=== PATIENT | female | born 1945 | race Caucasian/White ===

== ENCOUNTER → 2016-04-26 | Outpatient (CLI) | payer BC ==
[~2016-04-26] MED LIST: ASPIRIN 81M81 MG/TA2 PO; COMBIRESP IH; EPA FISH OIL1000 MG PO; LEVAQUIN 750MG750 M1 PO; PRINZIDE 12.5 M1 TAB PO; PROAIR HFA0.09 MG/AC IH; PROTONIX 40MG T40 MG PO; RT SPIRIVA18 MCG IH; THEO-24 30300 MG/CAP PO; ZESTRIL 5MG5 MG PO
== END ==
LOC: MC.RAD 07:40
DX: Z12.31 Encounter for screening mammogram for malignant neoplasm of breast (principal); D24.2 Benign neoplasm of left breast; D24.1 Benign neoplasm of right breast

== ENCOUNTER → 2016-09-26 | Outpatient (CLI) | payer BC | LOC: COL.VAS 08:38 | DX: I77.810 Thoracic aortic ectasia (principal); I51.7 Cardiomegaly; I36.1 Nonrheumatic tricuspid (valve) insufficiency; I10 Essential (primary) hypertension; R60.9 Edema, unspecified ==

== ENCOUNTER 2017-11-26 19:31 | Emergency (ER) | payer BC ==
[~2017-11-26] VITALS: Ht 162.6 cm; Wt 97.7 kg
[2017-11-26 19:38] VITALS: TEMP 98.6
[2017-11-26 20:36] LABS: BASO # 0.1 (0.0-0.2); BASO % 0.7 % (0.0-2.0); EOS # 0.2 (0.0-0.7); EOS % 1.9 % (0-4.0); GRAN % 74.4 % (42.2-75.2); HEMATOCRIT 41.8 % (37.0-47.0); HEMOGLOBIN 12.8 g/dl (12.5-16.0); LYMPH # 1.5 (1.2-3.4); MEAN CELL VOLUME 88 fl (80.0-100.0); MEAN CORPUSCULAR HEMOGLOBIN 27 pg (27.0-31.0); MEAN CORPUSCULAR HGB CONC 31 g/dl (33.0-37.0); MEAN PLATELET VOLUME 10.2 fl (7.4-10.4); MONO # 0.6 (0.1-0.6); MONO % 6.5 % (1.7-9.3); PLATELET COUNT 297 K/mm3 (130-400); RED BLOOD COUNT 4.77 M/mm3 (4.10-5.30); REDCELL DISTRIBUTION WIDTH-CV 15.5 % (11.5-14.5)
[2017-11-26] MEDS ORDERED: LIDODERM 5% PATC1 EA TP (21:47)
[2017-11-26] MEDS ORDERED: TYLENOL W/COD1 UDTAB PO (21:47)
[2017-11-26 21:54] VITALS: BP 149/76; PULSE 79
[2017-11-27 00:05] LABS: PROTHROMBIN TIME 11.5 SECONDS (9.7-12.8)
[2017-11-27 00:14] LABS: ALBUMIN 4.3 gm/dL (3.5-5.0); BILIRUBIN,TOTAL 0.4 mg/dL (0.0-1.0); CALCIUM 9.3 mg/dL (8.4-10.2); CREATININE, serum 0.77 mg/dL (0.52-1.25); POTASSIUM 4.3 mmol/L (3.4-5.0)
== END 2017-11-26 21:54 | disposition home or self-care (01) ==
LOC: COL.ER 19:31
PROVIDERS: Emergency Medicine
DX: S20.211A Contusion of right front wall of thorax, initial encounter (principal); I10 Essential (primary) hypertension; K21.9 Gastro-esophageal reflux disease without esophagitis; J44.9 Chronic obstructive pulmonary disease, unspecified; F17.210 Nicotine dependence, cigarettes, uncomplicated; Z79.82 Long term (current) use of aspirin; W18.39XA Other fall on same level, initial encounter; Y92.410 Unspecified street and highway as the place of occurrence of the external cause

== ENCOUNTER → 2018-05-02 | Outpatient (CLI) | payer BC ==
[~2018-05-02] MED LIST changes: +LIDODERM 5% PATC1 EA TP; +TYLENOL W/COD1 UDTAB PO
== END ==
LOC: MC.RAD 13:40
DX: Z12.31 Encounter for screening mammogram for malignant neoplasm of breast (principal)

== ENCOUNTER → 2019-02-26 | Outpatient (CLI) | payer BC | LOC: COL.RAD 15:24 | DX: R13.13 Dysphagia, pharyngeal phase (principal) ==

== ENCOUNTER → 2020-03-23 | Outpatient (CLI) | payer BC ==
[~2020-03-23] MED LIST changes: +ANORO IH; +CEFTIN500 MG PO; +DOXYCYCLINE 10100 MG PO; +NORCO 325 MG-51 TAB PO; +PREDNISONE20 MG PO; +PRINZIDE 12.5 M1 TA1 PO; +SPIRIVA RE2.5 MCG/Ac IH; +ZESTORETIC 12.51 TA1 PO
== END | disposition still patient (30) ==
LOC: MC.RAD 08:00
DX: Z12.31 Encounter for screening mammogram for malignant neoplasm of breast (principal)

== ENCOUNTER 2020-09-16 07:08 | Day surgery (SDC) | payer BC ==
[~2020-09-16] VITALS: Ht 165.1 cm; Wt 96.0 kg
[~2020-09-16 07:08] MED LIST changes: -ANORO IH; -CEFTIN500 MG PO; -DOXYCYCLINE 10100 MG PO; -NORCO 325 MG-51 TAB PO; -PREDNISONE20 MG PO; -PRINZIDE 12.5 M1 TA1 PO; -SPIRIVA RE2.5 MCG/Ac IH; -ZESTORETIC 12.51 TA1 PO
[2020-09-16 07:53] VITALS: BP 104/57; PULSE 95; TEMP 97.8
[2020-09-16] MEDS ORDERED: PRINZIDE 12.5 M1 TA1 PO (08:03)
[2020-09-16] MEDS ORDERED: ANORO IH (08:03)
[2020-09-16] MEDS ORDERED: PROAIR HFA0.09 MG/AC IH (08:04)
[2020-09-16 11:07] VITALS: BP 102/61; PULSE 62
--- NOTE | 2020-09-16 11:07 | NUR ---
Patient returns to room 6 per cart after having Bronchoscopy. Awake and alert. Denies difficulty swallowing or breathing. On oxygen at 3L per nasal cannula. Spouse in room. Temp 98.5. Siderails up x2 and call light in reach.
[2020-09-16 11:22] VITALS: BP 93/61; PULSE 65
--- NOTE | 2020-09-16 11:22 | NUR ---
Dr. Mejias here and talks with patient and spouse. All questions answered. Sats maintained greater than 93% on 3L.
[2020-09-16 11:37] VITALS: BP 104/75; PULSE 70
--- NOTE | 2020-09-16 11:37 | NUR ---
Tolerates water. No coughing. Talking with spouse.
[2020-09-16 11:52] VITALS: BP 101/76; PULSE 64
--- NOTE | 2020-09-16 11:52 | NUR ---
Patient has been resting and no coughing noted. IV discontinued and site is free of redness. Assisted up to the bathroom and is able to void and returns to room.
--- NOTE | 2020-09-16 12:00 | NUR ---
Dismissal instructions given and voices understanding of these. Provided office number for questions and concerns.
--- NOTE | 2020-09-16 12:06 | NUR ---
Patient dismissed to home driven by spouse and taken to the front door per wheelchair and assisted into vehicle with instructions in hand. Patient was using portable oxygen at 3L per nasal cannula.
== END 2020-09-16 12:06 | disposition home or self-care (01) ==
LOC: SDCO 07:08
DX: R91.8 Other nonspecific abnormal finding of lung field (principal); R04.2 Hemoptysis; R09.02 Hypoxemia; J44.9 Chronic obstructive pulmonary disease, unspecified; E07.9 Disorder of thyroid, unspecified; J98.11 Atelectasis; K21.9 Gastro-esophageal reflux disease without esophagitis; M81.0 Age-related osteoporosis without current pathological fracture; M19.90 Unspecified osteoarthritis, unspecified site; I10 Essential (primary) hypertension; Z85.21 Personal history of malignant neoplasm of larynx; Z87.891 Personal history of nicotine dependence; Z20.822 Contact with and (suspected) exposure to COVID-19; Z79.890 Hormone replacement therapy; Z79.899 Other long term (current) drug therapy; Z83.3 Family history of diabetes mellitus; Z80.9 Family history of malignant neoplasm, unspecified
CPT/HCPCS: J2704; J7120

== ENCOUNTER 2020-11-04 08:18 | Emergency (ER) | payer BC ==
[~2020-11-04] VITALS: Ht 162.6 cm; Wt 97.3 kg
[~2020-11-04 08:18] MED LIST changes: +ANORO IH; +PRINZIDE 12.5 M1 TA1 PO
[2020-11-04 08:26] VITALS: TEMP 99
[2020-11-04 08:46] LABS: BASO # 0.1 (0.0-0.2); BASO % 0.8 % (0.0-2.0); EOS # 0.2 (0.0-0.7); EOS % 2.7 % (0-4.0); GRAN # 4.3 (1.4-6.5); GRAN % 66.9 % (42.2-75.2); HEMOGLOBIN 12.8 g/dl (12.5-16.0); LYMPH # 1.4 (1.2-3.4); LYMPH % 21.4 % (20.0-51.0); MEAN CELL VOLUME 88 fl (80.0-100.0); MEAN CORPUSCULAR HEMOGLOBIN 28 pg (27.0-31.0); MEAN CORPUSCULAR HGB CONC 32 g/dl (33.0-37.0); MEAN PLATELET VOLUME 9.5 fl (7.4-10.4); MONO # 0.5 (0.1-0.6); MONO % 7.6 % (1.7-9.3); PLATELET COUNT 286 K/mm3 (130-400); RED BLOOD COUNT 4.56 M/mm3 (4.10-5.30); REDCELL DISTRIBUTION WIDTH-CV 14.6 % (11.5-14.5)
[2020-11-04 08:54] LABS: ALBUMIN 3.1 gm/dL (3.4-4.8); BILIRUBIN,TOTAL 0.5 mg/dL (0.2-1.2); CREATININE, serum 0.77 mg/dL (0.57-1.11); POTASSIUM 4.4 mmol/L (3.5-4.5); TOTAL PROTEIN 7.2 gm/dL (6.2-8.1)
[2020-11-04 08:58] LABS: ARTERIAL BLD GAS TCO2 CT 32.3; ARTERIAL BLOOD GAS BASE EXCESS 6.3 (-2-2); ARTERIAL BLOOD GAS HCO3 30.9 meq/L (22-26); ARTERIAL BLOOD GAS PCO2 44.2 mmHg (35-45); ARTERIAL BLOOD GAS PO2 78.4 mmHg (80-100); ARTERIAL BLOOD GAS pH 7.46 (7.35-7.45)
[2020-11-04 09:00] LABS: TROPONIN-I 0.014 ng/mL (0.00-0.033)
[2020-11-04] MEDS ORDERED: PREDNISONE20 MG PO (09:52)
[2020-11-04] MEDS ORDERED: DOXYCYCLINE 10100 MG PO (09:52)
[2020-11-04] MEDS ORDERED: CEFTIN500 MG PO (09:52)
[2020-11-04 10:17] VITALS: BP 147/84; PULSE 86
== END 2020-11-04 10:17 | disposition home or self-care (01) ==
LOC: COL.ER 08:18
PROVIDERS: Emergency Medicine
DX: R91.8 Other nonspecific abnormal finding of lung field (principal); I10 Essential (primary) hypertension; J44.9 Chronic obstructive pulmonary disease, unspecified; Z20.822 Contact with and (suspected) exposure to COVID-19; Z87.891 Personal history of nicotine dependence; Z79.899 Other long term (current) drug therapy
CPT/HCPCS: J7030; Q9967

== ENCOUNTER 2020-11-21 10:09 | Day surgery (SDC) | payer BC ==
[~2020-11-21] VITALS: Ht 162.6 cm; Wt 92.7 kg
[~2020-11-21 10:09] MED LIST changes: +CEFTIN500 MG PO; +DOXYCYCLINE 10100 MG PO; +PREDNISONE20 MG PO
[2020-11-21] MEDS ORDERED: ZESTORETIC 12.51 TA1 PO (10:29)
[2020-11-21] MEDS ORDERED: SPIRIVA RE2.5 MCG/Ac IH (10:30)
[2020-11-21 10:51] VITALS: BP 122/86; PULSE 95; TEMP 97.8
[2020-11-21 13:05] VITALS: BP 129/78; PULSE 73; TEMP 97.4
[2020-11-21] MEDS ORDERED: NORCO 325 MG-51 TAB PO (13:09)
[2020-11-21 13:20] VITALS: BP 168/85; PULSE 77
[2020-11-21 13:35] VITALS: BP 130/77; PULSE 85
--- NOTE | 2020-11-21 13:47 | NUR ---
1305: Patient arrived back from OR, Doing well, alert and awake, reports doing well no complaint of pain or nausea. 1320: Patient requesting pepsi and jello, tolerated both well, no complaint of pain or nausea. 1330: Went through discharge instruction with patient and daughter and gave implanted device instructions to patient and made copy per daughter request. Patient went to restroom and got dressed. 1335: Vital signs stable no complaint of pain or nausea. 1340: Escorted patient to patient entrance via wheelchair. Left patient in the care of her daughter, Pamela.
== END 2020-11-21 13:45 | disposition home or self-care (01) ==
LOC: SDCO 10:09
DX: C34.02 Malignant neoplasm of left main bronchus (principal); I10 Essential (primary) hypertension; J44.9 Chronic obstructive pulmonary disease, unspecified; Z85.21 Personal history of malignant neoplasm of larynx; F17.210 Nicotine dependence, cigarettes, uncomplicated; E66.9 Obesity, unspecified; Z68.36 Body mass index [BMI] 36.0-36.9, adult; Z20.822 Contact with and (suspected) exposure to COVID-19; Z79.899 Other long term (current) drug therapy; Z92.3 Personal history of irradiation; Z99.81 Dependence on supplemental oxygen
CPT/HCPCS: C1788; J0690; J1644; J2405; J2704; J3010; J7120

== ENCOUNTER → 2021-04-21 | Outpatient (CLI) | payer BC ==
[~2021-04-21] MED LIST changes: +NORCO 325 MG-51 TAB PO; +SPIRIVA RE2.5 MCG/Ac IH; +ZESTORETIC 12.51 TA1 PO
== END ==
LOC: MC.RAD 06:59
DX: Z12.31 Encounter for screening mammogram for malignant neoplasm of breast (principal)

== ENCOUNTER → 2022-03-13 | Outpatient (CLI) | payer BC ==
[~2022-03-13] MED LIST changes: +AMOXICILLIN 8751 TAB PO; +ELIQUIS 5MG PO; +MIRTAZAPINE7.5 MG PO; +PREDNISONE50 MG PO; +SYNTHROID0.05 MG/TA PO; +TESSALON PERLE200 MG PO; +TRELEGY ELLIPT1 EACH IH
== END ==
LOC: COL.RAD 10:01
DX: C34.02 Malignant neoplasm of left main bronchus (principal); J90 Pleural effusion, not elsewhere classified; E27.8 Other specified disorders of adrenal gland
CPT/HCPCS: Q9967

== ENCOUNTER 2023-01-08 06:24 | Day surgery (SDC) | payer BC ==
[2023-01-08] VITALS (10 sets, daily range): BP systolic 100–160; BP diastolic 63–91; PULSE 52–64; TEMP 97–97.9
[~2023-01-08] VITALS: Ht 165.1 cm; Wt 67.8 kg
[~2023-01-08 06:24] MED LIST changes: +ASPIRIN E.C. 8181 MG PO; +DESYREL 50MG50 MG PO; +LEVOXYL0.075 MG PO; +ZESTORETIC 12.51 TAB PO
--- NOTE | 2023-01-08 08:50 | NUR ---
0631 PT AMBULATORY TO BAY 2 WITH A STEADY GAIT, BREATHING AND UNLABORED. PT IS ALERT AND ORIENTED. CONSENTS REVIEWED AND SIGNED BY PT. IV ESTABLISHED. LR INFUSING VIA GRAVITY AT KVO. CALL LIGHT IN REACH. WARM BLANKETS PROVIDED.
--- NOTE | 2023-01-08 09:30 | NUR ---
PATIENT RETURNED DIRECTLY FROM OR BACK TO ROOM 2 VIA CART. PATIENT IS MODERATELY SEDATED, MINIMALLY RESPONSIVE TO NAME. BREATHING REGULAR AND UNLABORED ON 6L VIA FACE MASK. SKIN IS WARM AND DRY. BEDSIDE REPORT FROM AMBER FRAUSTO AND ISA [place] CRNA. CLEAN, DRY AND INTACT BANDAID PRESENT TO LEFT NECK. VISIBLE CLEAN, DRY AND INTACT MEDIPORE DRESSING TO LEFT CHEST. SEE CHART FOR VITAL SIGNS. RESPONSIVE TO STERNAL RUB. BILATERAL PUPILS EQUAL, ROUND AND REACTIVE TO LIGHT. HEART TONES REGULAR. COARSE LUNG SOUNDS, DIMINISHED RIGHT LOWER LOBE. SUCTION SET UP IN ROOM. PRIMARY NURSE STAYED IN ROOM WITH PATIENT UNTIL PATIENT WAS ABLE TO OPEN EYES ON COMMAND. 0950: PATIENT ABLE TO OPEN EYES UPON COMMAND. SQUEEZES BILATERAL HANDS UPON COMMAND. 0958: ABLE TO STATE NAME AND DATE OF . DENIES PAIN, NAUSEA AND SHORTNESS OF BREATH. OXYGEN REMOVED. PATIENT BREATHING REGULAR AND UNLABORED ON ROOM AIR. 1015: PATIENT IS AWAKE AND ORIENTED X3. DENIES SHORTNESS OF BREATH. ASSISTED PATIENT INTO SITTING UP AT A 90 DEGREE ANGLE IN CART. PATIENT TOOK A SMALL SIP OF WATER AND BEGAN TO COUGH. PATIENT COUGHED UP SPUTUM AND REPORTED FEELING BETTER AFTER. CALL LIGHT IN REACH. NEIGHBOR, ADA, PRESENT IN ROOM.
--- NOTE | 2023-01-08 10:47 | NUR ---
ASSISTED PATIENT TO THE RESTROOM. PATIENT VOIDED WITHOUT DIFFICULTY AND WALKED BACK TO CART WITH 1 ASSIST AND STEADY GAIT. POSITIONED PATIENT UPRIGHT. PATIENT HAD A WATERY COUGH WHILE ATTEMPTING TO SWALLOW WATER. PATIENT REPORTS THAT HER SWALLOWING HAS WORSENED OVER THE LAST FEW MONTHS. BOTH PATIENT AND ADA (NEIGHBOR) REPORT THAT SHE NORMALLY COUGHS FREQUENTLY WHEN TRYING TO EAT AND DRINK. PATIENT STATES SHE HAS "NOT SEEN ANYONE" ABOUT HER DIFFICULTY SWALLOWING.
--- NOTE | 2023-01-08 11:08 | NUR ---
DISCUSSED CONCERNS OVER PATIENTS DIFFICULTY SWALLOWING WITH . PER COMMUNICATION WITH , THIS SHOULD BE ADDRESSED BY THE PATIENTS ONCOLOGIST, . MET WITH PATIENT AND NEIGHBOR (ADA) TO DISCUSS PROCEDURE AND THE PATIENT'S SWALLOWING CONCERNS.
--- NOTE | 2023-01-08 11:15 | NUR ---
CALL PLACED TO 'S OFFICE. DISCUSSED THE PATIENTS SWALLOWING DIFFICULTY WITH 'S NURSE, JESS. JESS SPOKE WITH REGARDING THIS. SEE ORDERS FROM FOR SPEECH CONSULT.
--- NOTE | 2023-01-08 12:39 | NUR ---
TRAV RAMOS MET WITH PATIENT TO PERFORM AN EVALUATION FOR SPEECH AND SWALLOWING. TRAV GAVE THE PATIENT LIQUID THICKENER PACKETS TO TAKE HOME AND INSTRUCTED THE PATIENT ON HOW TO USE THEM. PER TRAV, WILL NEED TO ORDER A REFERRAL FOR THE PATIENT TO BE SEEN OUTPATIENT, AT THE [facility], IN A COUPLE OF WEEKS IF POSSIBLE. A MODIFIED BARIUM SWALLOW STUDY WAS ALSO REQUESTED TO BE ORDERED. SPOKE WITH JESS ( NURSE) ABOUT THE RECOMMENDATIONS FROM TRAV. PROVIDED JESS WITH THE FAX NUMBER FOR [facility]. JESS STATED THAT THEY WOULD FAX AN ORDER FOR THE REFERRAL AND ORDER FOR MODIFIED BARIUM SWALLOW STUDY.
--- NOTE | 2023-01-08 13:20 | NUR ---
1217: DISCHARGE TEACHING COMPLETED WITH PRINTED EDUCATION AND INSTRUCTIONS SENT HOME WITH PATIENT. PORT A CATH INFORMATION PACKET AND CARDS SENT HOME WITH PATIENT. PATIENT VERBALIZED UNDERSTANDING OF INTRUCTIONS. 1315: PATIENT DENIES PAIN, NAUSEA AND SHORTNESS OF BREATH. IV REMOVED. GAUZE AND COBAN PLACED OVER SITE. PATIENT STATED SHE HAS AN APPOINTMENT WITH LATER THIS WEEK. INSTRUCTED PATIENT THAT SHE SHOULD GET A CALL TO SCHEDULE AN APPOINTMENT TO BE SEEN FOR ANOTHER SPEECH EVALUATION AND MODIFIED BARIUM SWALLOW STUDY. PATIENT VERBALIZED UNDERSTANDING. 1320: PATIENT DISCHARGED HOME WITH [facility].
== END 2023-01-08 13:20 | disposition home or self-care (01) ==
LOC: SDCO 06:24
DX: Z45.2 Encounter for adjustment and management of vascular access device (principal); C34.12 Malignant neoplasm of upper lobe, left bronchus or lung; I82.C11 Acute embolism and thrombosis of right internal jugular vein; I82.290 Acute embolism and thrombosis of other thoracic veins; K21.9 Gastro-esophageal reflux disease without esophagitis; I10 Essential (primary) hypertension; Z87.891 Personal history of nicotine dependence; Z79.899 Other long term (current) drug therapy
CPT/HCPCS: C1788; J0690; J1644; J2704; J7120; Q9967

== ENCOUNTER 2023-04-24 07:47 | Emergency (ER) | payer BC ==
[~2023-04-24] VITALS: Ht 162.6 cm; Wt 67.7 kg
[2023-04-24 07:54] VITALS: TEMP 98.1
[2023-04-24 09:08] LABS: BASO # 0.1 K/mm3 (0.0-0.2); BASO % 1.1 % (0.0-2.0); EOS % 0.9 % (0.0-4.0); GRAN # 2.8 K/mm3 (1.4-6.5); GRAN % 63.5 % (42.2-75.2); LYMPH # 1.1 K/mm3 (1.2-3.4); LYMPH % 25.3 % (20.0-51.0); MEAN CELL VOLUME 98 fl (80.0-100.0); MEAN CORPUSCULAR HGB CONC 31 g/dl (33.0-37.0); MEAN PLATELET VOLUME 9.7 fl (7.4-10.4); MONO # 0.4 K/mm3 (0.1-0.6); MONO % 8.3 % (1.7-9.3); PLATELET COUNT 296 K/mm3 (130-400); RED BLOOD COUNT 2.89 M/mm3 (4.10-5.30); REDCELL DISTRIBUTION WIDTH-CV 18.1 % (11.5-14.5)
[2023-04-24 09:10] LABS: HEMATOCRIT 28.4 % (37.0-47.0); HEMOGLOBIN 8.8 g/dl (12.5-16.0); MEAN CORPUSCULAR HEMOGLOBIN 30 pg (27-31)
[2023-04-24 09:22] LABS: ALBUMIN 2.8 gm/dL (3.4-4.8); CALCIUM 8.9 mg/dL (8.4-10.2); CREATININE, serum 0.71 mg/dL (0.57-1.11); POTASSIUM 3.8 mmol/L (3.5-4.5); TOTAL PROTEIN 6.1 gm/dL (6.2-8.1)
[2023-04-24 10:16] VITALS: BP 123/81; PULSE 75
[2023-04-24 10:43] LABS: BILIRUBIN,TOTAL 0.4 mg/dL (0.2-1.2)
== END 2023-04-24 10:16 | disposition home or self-care (01) ==
LOC: COL.ER 07:47
PROVIDERS: Personal Emergency Response Attendant
DX: S09.90XA Unspecified injury of head, initial encounter (principal); S01.111A Laceration without foreign body of right eyelid and periocular area, initial encounter; Z79.82 Long term (current) use of aspirin; W18.30XA Fall on same level, unspecified, initial encounter; Y92.59 Other trade areas as the place of occurrence of the external cause; Y99.0 Civilian activity done for income or pay

== ENCOUNTER → 2023-07-31 | Outpatient (CLI) | payer BC ==
[2023-07-31 22:42] LABS: ANISOCYTOSIS 1+; BAND 4 % (0-10); LYMPHOCYTE 31 % (20.0-51.0); MICROCYTOSIS 1+; NEUTROPHILS 61 % (42.0-75.2); PLATELET ESTIMATE NORMAL (NORMAL); TEAR DROP CELLS 1+
== END ==
LOC: COL.LAB 19:44
PROVIDERS: Family Medicine
DX: C34.02 Malignant neoplasm of left main bronchus (principal)

== ENCOUNTER → 2023-08-05 | Outpatient (CLI) | payer BC ==
[2023-08-05 19:32] LABS: EOSINOPHIL 3 % (0-4); LYMPHOCYTE 24 % (20.0-51.0); NEUTROPHILS 72 % (42.0-75.2)
== END ==
LOC: COL.LAB 18:43
PROVIDERS: Family Medicine
DX: C34.02 Malignant neoplasm of left main bronchus (principal)

== ENCOUNTER → 2023-08-27 | Outpatient (REF) | payer BC ==
[2023-08-27 07:25] LABS: BAND 3 % (0-10); LYMPHOCYTE 30 % (20.0-51.0); NEUTROPHILS 63 % (42.0-75.2); PLATELET ESTIMATE INCREASED (NORMAL)
== END ==
LOC: ZCOL.LAB 07:00
PROVIDERS: Family Medicine
DX: C34.92 Malignant neoplasm of unspecified part of left bronchus or lung (principal)

== ENCOUNTER → 2023-09-17 | Outpatient (REF) | payer BC ==
[2023-09-17 20:51] LABS: EOSINOPHIL 5 % (0-4); LYMPHOCYTE 22 % (20.0-51.0); NEUTROPHILS 73 % (42.0-75.2); PLATELET ESTIMATE INCREASED (NORMAL)
== END ==
LOC: ZCOL.LAB 17:53
PROVIDERS: Family Medicine
DX: C34.02 Malignant neoplasm of left main bronchus (principal)

== ENCOUNTER → 2023-09-23 | Outpatient (CLI) | payer BC ==
[2023-09-23 19:33] LABS: ANISOCYTOSIS 1+; BAND 8 % (0-10); BASOPHIL 6 % (0-2); HYPOCHROMIA 1+; LYMPHOCYTE 20 % (20.0-51.0); NEUTROPHILS 56 % (42.0-75.2)
[2023-09-23 19:34] LABS: OVALOCYTES 1+
== END ==
LOC: COL.LAB 16:23
PROVIDERS: Family Medicine
DX: C34.02 Malignant neoplasm of left main bronchus (principal)

== ENCOUNTER → 2023-10-07 | Outpatient (CLI) | payer BC ==
[2023-10-07 21:12] LABS: ANISOCYTOSIS 1+; BAND 4 % (0-10); BASOPHIL 2 % (0-2); EOSINOPHIL 4 % (0-4); HYPOCHROMIA 1+; LYMPHOCYTE 22 % (20.0-51.0); METAMYELOCYTE 2 % (0-0); NEUTROPHILS 60 % (42.0-75.2)
== END ==
LOC: COL.LAB 16:29
PROVIDERS: Family Medicine
DX: C34.02 Malignant neoplasm of left main bronchus (principal)

== ENCOUNTER → 2023-10-21 | Outpatient (REF) | payer BC ==
[2023-10-21 19:51] LABS: ANISOCYTOSIS 1+; BAND 2 % (0-10); EOSINOPHIL 4 % (0-4); HYPOCHROMIA 1+; LYMPHOCYTE 24 % (20.0-51.0); MICROCYTOSIS 1+; NEUTROPHILS 64 % (42.0-75.2)
== END ==
LOC: ZCOL.LAB 17:44
PROVIDERS: Family Medicine
DX: C34.02 Malignant neoplasm of left main bronchus (principal)

== ENCOUNTER → 2023-11-01 | Outpatient (REF) | payer BC ==
[2023-11-01 01:44] LABS: ANISOCYTOSIS 3+; BAND 5 % (0-10); HYPOCHROMIA 1+; LYMPHOCYTE 19 % (20.0-51.0); NEUTROPHILS 69 % (42.0-75.2); OVALOCYTES 1+; PLATELET ESTIMATE INCREASED (NORMAL)
== END ==
LOC: ZCOL.LAB 00:14
PROVIDERS: Family Medicine
DX: C34.02 Malignant neoplasm of left main bronchus (principal)

== ENCOUNTER → 2023-11-04 | Outpatient (REF) | payer BC ==
[2023-11-05 06:16] LABS: ANISOCYTOSIS 3+; BAND 4 % (0-10); EOSINOPHIL 1 % (0-4); LYMPHOCYTE 13 % (20.0-51.0); NEUTROPHILS 74 % (42.0-75.2); PLATELET ESTIMATE INCREASED (NORMAL)
== END ==
LOC: ZCOL.LAB 17:55
PROVIDERS: Family Medicine
DX: C34.02 Malignant neoplasm of left main bronchus (principal)

== ENCOUNTER → 2023-11-18 | Outpatient (CLI) | payer BC ==
[2023-11-18 20:55] LABS: BASOPHIL 2 % (0-2); EOSINOPHIL 2 % (0-4); LYMPHOCYTE 31 % (20.0-51.0); NEUTROPHILS 57 % (42.0-75.2)
[2023-11-18 20:56] LABS: ANISOCYTOSIS 1+; OVALOCYTES 1+; PLATELET ESTIMATE INCREASED (NORMAL)
== END ==
LOC: COL.LAB 16:47
PROVIDERS: Family Medicine
DX: C34.02 Malignant neoplasm of left main bronchus (principal)

== ENCOUNTER → 2023-12-02 | Outpatient (CLI) | payer BC ==
[2023-12-02 20:05] LABS: BAND 1 % (0-10); LYMPHOCYTE 23 % (20.0-51.0); NEUTROPHILS 71 % (42.0-75.2)
== END ==
LOC: COL.LAB 16:23
PROVIDERS: Family Medicine
DX: C34.02 Malignant neoplasm of left main bronchus (principal)

== ENCOUNTER → 2023-12-10 | Outpatient (REF) | payer BC ==
[2023-12-10 20:16] LABS: BAND 2 % (0-10); BASOPHIL 1 % (0-2); EOSINOPHIL 1 % (0-4); LYMPHOCYTE 22 % (20.0-51.0); NEUTROPHILS 70 % (42.0-75.2)
[2023-12-10 20:17] LABS: HYPOCHROMIA 2+; MICROCYTOSIS 1+; OVALOCYTES 1+
== END ==
LOC: COL.LAB 19:46
PROVIDERS: Family Medicine
DX: C34.02 Malignant neoplasm of left main bronchus (principal)